=== PATIENT | male | born 1935 | race Caucasian/White ===

== ENCOUNTER 2017-10-22 13:23 | Inpatient (IN) | payer OTHER ==
[~2017-10-22] VITALS: Ht 172.7 cm; Wt 76.7 kg
[~2017-10-22 13:23] MED LIST: ASPIR 8181 MG PO; ASPIRIN325 PO; FISH OIL 1,0001 EAC5 PO; KEPPRA 500 MG500 M1 PO; MINIPRIN81 MG PO; MULTIVITAMINS PO; NOHOMEMEDICATIONS; PLAVIX 75 MG TA75 MG PO; PREDNISONE50 MG PO; VITAMIN E400 UNIT PO
[2017-10-22 13:37] VITALS: BP 151/76
[2017-10-22 15:06] LABS: ABSOLUTE BASOPHILS 0.1 thou/uL (0.0-0.2); ABSOLUTE EOSINOPHILS 0.1 thou/uL (0.0-0.7); ABSOLUTE LYMPHOCYTES 0.9 thou/uL (0.8-5.3); ABSOLUTE MONOCYTES 0.4 thou/uL (0.0-1.2); ABSOLUTE NEUTROPHILS 3.8 thou/uL (1.6-8.1); EOSINOPHILS 2.3 %; HEMATOCRIT 44.7 % (42.0-52.0); HEMOGLOBIN 14.6 gm/dL (14.0-18.0); LYMPHOCYTES 16.4 %; MCH 30.7 pg (26.0-34.0); MCHC 32.7 g/dL (28.0-37.0); MCV 93.9 fL (80.0-100.0); MPV 9.1 fl. (7.2-11.1); NUCLEATED RBCS 0 /100WBC; PLATELET COUNT* 174 thou/uL (150-400); POLYS 72.3 %; RBC 4.76 mil/uL (4.50-6.00); RDW-CV 13.6 % (10.5-14.5); WBC 5.2 thou/uL (4.0-11.0)
[2017-10-22 15:08] LABS: URINE BILIRUBIN NEGATIVE (Negative); URINE BLOOD NEGATIVE (Negative); URINE CLARITY CLEAR; URINE COLOR YELLOW; URINE GLUCOSE-RANDOM NEGATIVE (Negative); URINE KETONES NEGATIVE (Negative); URINE LEUKOCYTES-REFLEX NEGATIVE (Negative); URINE NITRITE-REFLEX NEGATIVE (Negative); URINE PROTEIN NEGATIVE (Negative); URINE SPECIFIC GRAVITY <= 1.005 (1.005-1.030); URINE UROBILINOGEN 0.2 E.U./dl (0.2-1.0)
[2017-10-22 15:11] LABS: CALCIUM 9.2 mg/dL (8.5-10.1); CREATININE 1.2 mg/dL (0.6-1.3)
[2017-10-22 15:21] LABS: ALBUMIN 3.7 g/dL (3.4-5.0); TOTAL BILIRUBIN 0.3 mg/dL (<0.1-1.0); TOTAL PROTEIN 7.1 g/dL (6.4-8.2)
--- NOTE | 2017-10-22 16:44 | NUR ---
AMBULATED TO TOILET TO VOID. GAIT STEADY.
--- NOTE | 2017-10-22 18:21 | NUR ---
REVIEWED DOCUMENTATION OF NSG STUDENT Douglas OSORIO & YAHIR W/ SAME.
--- NOTE | 2017-10-22 18:28 | NUR ---
RETURNED FROM MRI TO Rachel
[2017-10-22 19:39] VITALS: BP 150/79
[2017-10-22 20:15] VITALS: BP 127/82
--- NOTE | 2017-10-22 20:30 | NUR ---
RECEIVED REPORT FROM ER, STEADY AMBULATION FROM CART TO BED. ASSESSMENT COMPLETED. SEE ADMISSION HX AND ASSESSMENT. NIH 0, NO DIFFICULTY WITH SWALLOWING. BED ALARM ON FOR SAFETY. NO SKIN ISSUES NOTED. TELEMETRY APPLIED SHOWING SR. WILL CONT TO MONITOR AND ASSIST NEEDED.
[2017-10-23] VITALS: BP 124/65
[2017-10-23 04:00] VITALS: BP 108/56
[2017-10-23 05:11] LABS: CHOLESTEROL 152 mg/dL (<200); HDL CHOLESTEROL 57 mg/dL (>40); LDL CHOLESTEROL 84 mg/dL (<100); TC:HDL 2.7 Ratio (Not establshd); TRIGLYCERIDE 59 mg/dL (<150); VLDL 12 mg/dL (<40)
[2017-10-23 05:29] LABS: SERUM ASSESSMENT Clear
--- NOTE | 2017-10-23 07:27 | NUR ---
SLEPT WELL TONIGHT. PT DID HAVE A 4 SECOND PAUSE, ASYMPTOMATIC WITH THIS, WAS LAYING ON RT SIDE AND HAD VS TAKEN JUST A FEW MIN PREVIOUSLY. OTHER SALAZAR TELEMETRY SHOWNG SB. NO CHANGE IN ASSESSMENT. ACHIEVED HS GOALS OF REST AND SAFETY. HOURLY ROUNDING OBSERVED.
[2017-10-23 07:30] VITALS: BP 116/66
[2017-10-23] MEDS ORDERED: ASPIRIN81 M2 PO (08:29)
[2017-10-23] MEDS ORDERED: LIPITOR40 MG PO (08:29)
[2017-10-23 10:14] VITALS: BP 116/66
[2017-10-23 11:59] VITALS: BP 160/86
[2017-10-23] MEDS ORDERED: PRILOSEC 20 MG20 MG PO (15:33)
--- NOTE | 2017-10-23 16:17 | 2DMMODE ---
[place] [address] 2 D/M-MODE ECHOCARDIOGRAM Name: OSNY TRUJILLO Room: [facility] IN [facility]#: [id number] Admission: 10/22/17 Attend Phys: Flo Shields, Discharge: Date of : 37 Date of Service: 10/23/17 1617 Report #: [id number] THIS REPORT FOR: //name// APPROVED REPORT Study performed: 10/23/2017 10:18:09 EXAM: Comprehensive 2D, Doppler, and color-flow Echocardiogram Patient Location: In-Patient Room #: 203 Status: routine BSA: 1.94 HR: 63 bpm BP: 116/66 mmHg Rhythm: NSR Other Information Study Quality: Good Indications CVA/TIA Echo Enhancing Agent Indication: Rule out Shunt Agent(s) / Amount(s) Used: Agitated Saline 10 cc 2D Dimensions LVEF(%): 71.94 (>50%) IVSd: 13.95 (7-11mm) LVOT Diam: 21.84 (18-24mm) LVDd: 43.61 mm PWd: 10.83 (7-11mm) Ascending Ao: 31.65 (22-36mm) LVDs: 25.78 (25-40mm) Aortic Root: 39.26 mm Smiley's LVEF: 71.94 % Volumes Left Atrial Volume (Systole) LA ESV Index: 30.50 mL/m2 Aortic Valve AoV Peak Ez.: 1.21 m/s AO Peak Gr.: 5.86 mmHg LVOT Max P.13 mmHg AO Mean Gr.: 3.35 mmHg LVOT Mean P.63 mmHg LVOT Max V: 0.88 m/s AO V2 VTI: 26.28 cm LVOT Mean V: 0.59 m/[place] [address] 2 D/M-MODE ECHOCARDIOGRAM Name: SONY TRUJILLO Room: [address] IN .R.#: [id number] Admission: 10/22/17 Attend Phys: Flo Shields, Discharge: Date of : 37 Date of Service: 10/23/17 1617 Report #: [id number] SETH (VTI): 2.99 cm2 LVOT V1 VTI: 20.98 cm AI Overton: 2.16 m/s2 AI PHT: 538.02 ms Mitral Valve E/A Ratio: 0.63 MV Decel. Time: 306.65 ms MV E Max Ez.: 0.64 m/s MV PHT: 88.93 ms MVA (PHT): 2.47 cm2 TDI E/Lateral E': 4.57 E/Medial E': 8.00 Medial E' Ez.: 0.08 m/s Lateral E' Ez.: 0.14 m/s Pulmonary Valve PV Peak Ez.: 0.73 m/s PV Peak Gr.: 2.15 mmHg Tricuspid Valve RAP Estimate: 5.00 mmHg TR Peak Gr.: 32.66 mmHg RVSP: 37.66 mmHg PA Pressure: 37.66 mmHg Left Ventricle The left ventricle is normal size. There is normal LV segmental wall motion. There is normal left ventricular wall thickness. Left ventricular systolic function is normal. LVEF is 55-60%. Grade I - abnormal relaxation pattern. Right Ventricle The right ventricle is normal size. The right ventricular systolic function is normal. Atria Left atrium is mildly dilated. Interatrial septum is intact without evidence of ASD or PFO. Right atrium is mildly dilated. Aortic Valve The aortic valve is normal in structure. Mild aortic regurgitation. There is no aortic valvular stenosis. Mitral Valve The mitral valve is normal in structure. Mild mitral regurgitation. No evidence [place] [address] 2 D/M-MODE ECHOCARDIOGRAM Name: SONY TRUJILLO Room: [address] IN M.R.#: [id number] Admission: 10/22/17 Attend Phys: Flo Shields, Discharge: Date of : 37 Date of Service: 10/23/17 1617 Report #: [id number] Tricuspid Valve The tricuspid valve is normal in structure. Mild tricuspid regurgitation. The RVSP is 40-45 mmHg. Pulmonic Valve The pulmonary valve is normal in structure. There is no pulmonic valvular regurgitation. Great Vessels The aortic root is normal in size. IVC is normal in size and collapses with >50% inspiration Pericardium There is no pericardial effusion. <Conclusion> The left ventricle is normal size. There is normal left ventricular wall thickness. Left ventricular systolic function is normal. LVEF is 55-60%. Grade I - abnormal relaxation pattern. Left atrium is mildly dilated. Right atrium is mildly dilated. Interatrial septum is intact without evidence of ASD or PFO. Mild aortic regurgitation. Mild mitral regurgitation. Mild tricuspid regurgitation. The RVSP is 40-45 mmHg. <ELECTRONICALLY SIGNED> By: Raciel Denney MD, FACC 10/23/17 1617 16 16 Raciel Denney MD, FACC /INF
[2017-10-23 16:33] VITALS: BP 134/70
--- NOTE | 2017-10-23 16:52 | NUR ---
RECEIVED DISCHARGE ORDERS PER DR MART. NEURO OK WITH DC TODAY. DISCUSSED ASA THERAPY AFTER DISCHARGE WITH DR MART AND RECEIVED ORDERS FOR OTC OMEPRAZOLE TO ADD TO PATIENTS DC MEDICATIONS. IV DISCONTINUED. REEL MAN REMOVED AND RETURNED TO NURSE'S DESK. EDUCATED THE PATIENT ON F/U APPT WITH HIS PRIMARY AND NEUROLOGY. EDUCATED THE PATIENT ON HIS RISK OF BLEEDING WITH ASPIRIN AND EDUCATED HIM ON SIGNS AND SYMPTOMS OF INTERNAL BLEEDING. PATIENT VERBALIZED UNDERSTANDING. ALL HIS BELONGINGS PACKED AND LEAVING WITH HIM. HE DENIES ANY QUESTIONS OR CONCERNS AT DISCHARGE. LEAVING AMBULATORY PER HIS REQUEST ACCOMPANIED BY NURSING STAFF AND HIS SPOUSE.
--- NOTE | 2017-10-23 17:18 | EKG ---
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
[2017-10-24 02:07] LABS: GLYCOHEMOGLOBIN (HGB A1C) 5.1 % (4.8-5.6)
--- NOTE | 2017-10-29 08:35 | CON ---
[address] [address] CONSULTATION Name: SONY TRUJILLO Room: [address] IN M.R.#: [id number] Admission: 10/22/17 Attend Phys: Flo Shields MD Discharge: 10/23/17 Date of : 37 Report #: [id number] THIS REPORT FOR: //name// CC: Paul Shields DATE OF SERVICE: 10/23/2017 HISTORY OF PRESENT ILLNESS: This is an 82-year-old male patient who was admitted with an episode of amnesia. It happened following an emotional event. He feels back to his baseline now. His confusion was severe. History is from the record as well as from the patient. I tried to talk to the patient's , but I am not able to reach this patient. This happened spontaneously without any trauma. He is back to his baseline and is not fluctuating. REVIEW OF SYSTEMS: Indicates he apparently had a stroke. He does not know what hospital he was in when he had a stroke. There is some blood workup, which I see which can be because of stroke. His workup has included a sed rate, cardiolipin antibodies, homocysteine screen. Review of systems indicates that at one time, he tried to take an aspirin, but subsequently stopped doing it with some kind of problem with the GI bleed. He did have a sed rate in the past and there was no evidence for vasculitis. He denies any history of diabetes. He is not on aspirin anymore. He feels back to his baseline now. The 14-point review of system was carried out and this patient's records were reviewed and apparently, he had a stroke. He said it affected the right side of the body. It was a mild stroke, but I do not have any further history. Subsequently, he was admitted with a seizure. Seizure was attributed to his prior stroke, but there was a presumptive diagnosis. He was started on Keppra and he does not have any seizure anymore. Otherwise, he feels back to his baseline and is not having any other eye, ENT, cardiac, respiratory, GI, , musculoskeletal, constitutional, dermatological, hematological, psychiatric, throat, allergic symptom associated with present symptomatology except as described above. PAST MEDICAL HISTORY: Positive for stroke as well as seizure, but I do not have good history. FAMILY HISTORY: Negative for early age stroke. SOCIAL HISTORY: This patient lives with his . I cannot reach the patient's . He said he is able to do all the things of daily living independently and he still drives, but I need to confirm that history from the patient's . He does not smoke or drink alcohol. PHYSICAL EXAMINATION: Indicates he is alert, responsive. He is oriented. He knows what month it is. His speech, concentration, fund of knowledge and memory is at his baseline. Cranial nerve examination 2-12 looks [place]remark[place] [address] CONSULTATION Name: SONY TRUJILLO Room: [address]#: [id number] Admission: 10/22/17 Attend Phys: Flo Shields MD Discharge: 10/23/17 Date of : 37 Report #: [id number] symmetrical strength, sensation, reflexes and tones in all 4 extremities. There is no papilledema. There is no cerebellar sign. The patient is a reasonably well-developed individual who does not have any dysmorphic features of eyes, ears and face. His vision and hearing looks adequate. His pulses in the lower extremities are nicely palpable and there is no edema, cyanosis or jaundice. He has no thyroid mass or carotid bruit. Cardiac examination was unremarkable. No respiratory difficulty or rhonchi was noticed. His blood pressure is 160/86, respirations 17, pulse is 65, and temperature is 97.9. LABORATORY DATA: Indicates a white count of 5.2, sodium normal at 140. He had a prior extensive workup, which was summarized above. This time, his LDL is 84. IMPRESSION: It looks, the most likely his spell was because of the emotional reaction than anything else. The possibility of seizure is there because he has a prior history of seizure and transient ischemic attack can also cause the problem. His MRI has shown a new stroke since the last MRI was done, but that is not a recent event. That is several weeks older at least and maybe even older. That does not explain the patient's present symptomatology, but that need to be addressed because the patient is having more strokes and secondary stroke prophylaxis needed to be initiated. RECOMMENDATIONS: 1. I will continue the patient's MRI. 2. I agree with the high dose of statin. 3. Since a new stroke has been present since the last time, I will repeat his workup including a cardiolipin antibodies, but the main management is going to be the management of his dyslipidemia and antiplatelet therapy if can be safely prescribed. I do not know whether he needs a GI consult or not in that regard and will defer to you. If it cannot be safely given, the advantage is not very high and then, he should not be given. From neurological perspective, he can be dismissed after his workup is complete, but he does need to follow up with us because of the new lesions on the brain. Thank you very much for this referral and if you have any questions, please feel free to contact me. <ELECTRONICALLY SIGNED> By: Mahendra Lujan MD 10/29/17 0835 1313 [id number] Lujan MD /nt
--- NOTE | 2017-10-29 08:35 | EEG ---
[address] [address] EEG STUDY REPORT Name: RONNIESONY Li Room: [address] IN M.R.#: [id number] Admission: 10/22/17 Attend Phys: Flo Shields MD Discharge: 10/23/17 Date of : 37 Report #: [id number] THIS REPORT FOR: //name// CC: Paul Shields DATE OF SERVICE: 10/23/2017 This patient is admitted with an episode of altered mental status. EEG was done by placing the electrodes by standard 10-20 system of electrode placement. Both referential and sequential montages were used for recording. Background activity in this patient's EEG is about 9-10 Hz and 30 microvolts. It is a symmetrical activity. The patient became drowsy that is associated with bilateral slowing. Photic stimulation was unremarkable. Throughout the record, no active epileptiform activity was noticed. IMPRESSION: This patient's EEG is within normal limit. Thank you very much for this referral. <ELECTRONICALLY SIGNED> By: Mahendra Lujan MD 10/29/17 0835 1834 1918Mahendra Lujan MD /nt
== END 2017-10-23 16:43 | disposition home or self-care (01) | DRG 66 ==
LOC: M.ERS 13:23 → M.TBA-ER 18:34 → M.2W 18:34
PROVIDERS: Personal Emergency Response Attendant; ADMIT Internal Medicine
DX: I63.9 Cerebral infarction, unspecified (principal); E78.5 Hyperlipidemia, unspecified; N18.2 Chronic kidney disease, stage 2 (mild); Z87.891 Personal history of nicotine dependence; Z79.82 Long term (current) use of aspirin; Z79.899 Other long term (current) drug therapy

== ENCOUNTER 2019-01-17 08:09 | Emergency (ER) | payer OTHER ==
[~2019-01-17] VITALS: Ht 172.7 cm; Wt 79.4 kg
[~2019-01-17 08:09] MED LIST changes: +ASPIRIN81 M2 PO; +LIPITOR40 MG PO; +PRILOSEC 20 MG20 MG PO
[2019-01-17] MEDS ORDERED: NORCO 5-325 TA1 EAC1 PO (10:06)
[2019-01-17 10:17] VITALS: BP 141/82
--- NOTE | 2019-01-17 18:23 | EKG ---
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
== END 2019-01-17 10:18 | disposition home or self-care (01) ==
LOC: M.ERS 08:09
DX: S46.001A Unspecified injury of muscle(s) and tendon(s) of the rotator cuff of right shoulder, initial encounter (principal); E78.5 Hyperlipidemia, unspecified; N18.2 Chronic kidney disease, stage 2 (mild); X58.XXXA Exposure to other specified factors, initial encounter; Y93.89 Activity, other specified; Y92.89 Other specified places as the place of occurrence of the external cause; Y99.8 Other external cause status